=== PATIENT | female | born 1995 | race Caucasian/White ===

== ENCOUNTER 2017-09-28 01:36 | Emergency (ER) | payer OTHER ==
[2017-09-28 01:54] LABS: BILIRUBIN,URINE NEGATIVE (NEG); CLARITY,URINE CLOUDY; COLOR,URINE YELLOW; GLUCOSE,URINE 500 mg/dL (NEG); NITRITE,URINE NEGATIVE (NEG); PH,URINE 5.5; PROTEIN,URINE NEGATIVE (NEG-TRACE); UROBILINOGEN,URINE 0.2 mg/dL (0.2 mg/dL)
[2017-09-28 02:03] LABS: BACTERIA,URINE MANY /HPF (0-FEW); RBC,URINE 0 /HPF (0-2); SQUAMOUS EPITHELIAL CELL,UR MANY /LPF
[2017-09-28 02:21] LABS: ADD MAN DIFF? NO
[2017-09-28 02:24] LABS: BASO % 0 % (0-3); EOS # 0.2 x10^3/uL (0.0-0.7); EOS % 2 % (0-3); HEMATOCRIT 41.9 % (36.0-47.0); HEMOGLOBIN 14.2 g/dL (12.0-15.5); LYMPH # 2.5 x10^3/uL (1.0-4.8); LYMPH % 23 % (24-48); MEAN CORPUSCULAR HEMOGLOBIN 31 pg (25-35); MEAN CORPUSCULAR HGB CONC 34 g/dL (31-37); MEAN CORPUSCULAR VOLUME 92 fL (79-100); MONO # 0.8 x10^3/uL (0.0-1.1); MONO % 7 % (0-9); NEUT # 7.5 x10^3uL (1.8-7.7); NEUT % 68 % (31-73); PLATELET COUNT 246 x10^3/uL (140-400); RED BLOOD COUNT 4.54 x10^6/uL (3.50-5.40); RED CELL DISTRIBUTION WIDTH 12.9 % (11.5-14.5)
[2017-09-28] MEDS ORDERED: NITROFURANTOIN MONOHYD/M-CRYST 100 MG CAPSULE. PO (03:17)
[2017-09-28] MEDS: NITROFURANTOIN MONOHYD/M-CRYST 100 MG CAPSULE. PO (03:21)
[2017-09-29 07:18] LABS: URINE HCG POC HCG POSITIVE (Negative)
== END 2017-09-28 03:22 | disposition home or self-care (01) ==
LOC: ER 01:36
DX: O20.0 Threatened abortion (principal); O23.41 Unspecified infection of urinary tract in pregnancy, first trimester; F12.10 Cannabis abuse, uncomplicated; Z3A.01 Less than 8 weeks gestation of pregnancy; Z90.49 Acquired absence of other specified parts of digestive tract
CPT/HCPCS: 36415; 81001; 81025; 84702; 85025; 86900; 86901; 87086; 99284

== ENCOUNTER 2017-10-05 09:30 | Emergency (ER) | payer OTHER ==
[2017-10-05 10:18] LABS: URINE HCG POC HCG POSITIVE (Negative)
[2017-10-05 10:28] LABS: BILIRUBIN,URINE NEGATIVE (NEG); CLARITY,URINE CLEAR; COLOR,URINE YELLOW; GLUCOSE,URINE NEGATIVE (NEG); NITRITE,URINE NEGATIVE (NEG); PROTEIN,URINE NEGATIVE (NEG-TRACE); UROBILINOGEN,URINE 0.2 mg/dL (0.2 mg/dL)
[2017-10-05 10:43] LABS: BACTERIA,URINE 0 /HPF (0-FEW); RBC,URINE 0 /HPF (0-2); SQUAMOUS EPITHELIAL CELL,UR MOD /LPF; WBC,URINE RARE /HPF (0-4)
[2017-10-05 11:18] LABS: ADD MAN DIFF? NO
[2017-10-05 11:22] LABS: BASO % 0 % (0-3); EOS # 0.2 x10^3/uL (0.0-0.7); EOS % 3 % (0-3); HEMATOCRIT 39.9 % (36.0-47.0); HEMOGLOBIN 13.7 g/dL (12.0-15.5); LYMPH # 1.5 x10^3/uL (1.0-4.8); LYMPH % 22 % (24-48); MEAN CORPUSCULAR HEMOGLOBIN 31 pg (25-35); MEAN CORPUSCULAR HGB CONC 34 g/dL (31-37); MEAN CORPUSCULAR VOLUME 92 fL (79-100); MONO # 0.5 x10^3/uL (0.0-1.1); MONO % 7 % (0-9); NEUT # 4.7 x10^3uL (1.8-7.7); NEUT % 68 % (31-73); PLATELET COUNT 226 x10^3/uL (140-400); RED BLOOD COUNT 4.36 x10^6/uL (3.50-5.40); RED CELL DISTRIBUTION WIDTH 12.7 % (11.5-14.5)
[2017-10-05 11:27] LABS: ANION GAP 6 (6-14); BLOOD UREA NITROGEN 7 mg/dL (7-20); CALCIUM 8.7 mg/dL (8.5-10.1); CARBON DIOXIDE 27 mmol/L (21-32); CHLORIDE 104 mmol/L (98-107); CREATININE 0.6 mg/dL (0.6-1.0); GFR 123.9; GLUCOSE 87 mg/dL (70-99); SODIUM 137 mmol/L (136-145)
[2017-10-05 11:33] LABS: ALBUMIN 3.5 g/dL (3.4-5.0); ALK PHOS 48 U/L (46-116); ALT (SGPT) 19 U/L (14-59); AST (SGOT) 13 U/L (15-37); DIRECT BILIRUBIN < 0.1 mg/dL (0.0-0.2); TOTAL BILIRUBIN 0.3 mg/dL (0.2-1.0); TOTAL PROTEIN 7.3 g/dL (6.4-8.2)
[2017-10-05 11:35] LABS: PARTIAL THROMBOPLASTIN TIME 29 SEC (24-38); PROTHROMBIN TIME PATIENT 13.1 SEC (11.7-14.0)
[2017-10-05 12:12] LABS: FECAL OB PT POSITIVE (NEG); NEG OBC FOB NEG; POS OBC FOB POS
[2017-10-05] MEDS: ONDANSETRON PF 4 MG/2 ML VIAL. IV (12:12)
[2017-10-05] MEDS ORDERED: FAMOTIDINE 20 MG TABLET. (13:22)
[2017-10-05] MEDS: FAMOTIDINE 20 MG TABLET. PO (13:27)
== END 2017-10-05 13:23 | disposition home or self-care (01) ==
LOC: ER 09:30
DX: O99.611 Diseases of the digestive system complicating pregnancy, first trimester (principal); K29.70 Gastritis, unspecified, without bleeding; F12.10 Cannabis abuse, uncomplicated; Z90.49 Acquired absence of other specified parts of digestive tract; Z3A.10 10 weeks gestation of pregnancy
CPT/HCPCS: 36415; 80048; 80076; 81001; 81025; 82274; 85025; 85610; 85730; 87086; 96374; 99284-25; J2405

== ENCOUNTER 2017-12-01 00:32 | Emergency (ER) | payer OTHER ==
[2017-12-01 01:24] LABS: BILIRUBIN,URINE NEGATIVE (NEG); CLARITY,URINE CLEAR; COLOR,URINE YELLOW; GLUCOSE,URINE NEGATIVE (NEG); NITRITE,URINE NEGATIVE (NEG); PH,URINE 6.5; PROTEIN,URINE NEGATIVE (NEG-TRACE)
[2017-12-01 01:28] LABS: ADD MAN DIFF? NO
[2017-12-01 01:29] LABS: BASO % 0 % (0-3); EOS # 0.1 x10^3/uL (0.0-0.7); EOS % 2 % (0-3); HEMATOCRIT 34.8 % (36.0-47.0); HEMOGLOBIN 12.4 g/dL (12.0-15.5); LYMPH % 24 % (24-48); MEAN CORPUSCULAR HEMOGLOBIN 33 pg (25-35); MEAN CORPUSCULAR HGB CONC 36 g/dL (31-37); MEAN CORPUSCULAR VOLUME 92 fL (79-100); MONO # 0.7 x10^3/uL (0.0-1.1); MONO % 8 % (0-9); NEUT # 5.5 x10^3uL (1.8-7.7); NEUT % 66 % (31-73); PLATELET COUNT 195 x10^3/uL (140-400); RED BLOOD COUNT 3.79 x10^6/uL (3.50-5.40); RED CELL DISTRIBUTION WIDTH 12.4 % (11.5-14.5); WHITE BLOOD COUNT 8.3 x10^3/uL (4.0-11.0)
[2017-12-01 01:33] LABS: BACTERIA,URINE 0 /HPF (0-FEW); RBC,URINE 0 /HPF (0-2); SQUAMOUS EPITHELIAL CELL,UR FEW /LPF; WBC,URINE 0 /HPF (0-4)
[2017-12-01 01:43] LABS: ANION GAP 8 (6-14); BLOOD UREA NITROGEN 8 mg/dL (7-20); BUN/CREATININE RATIO 16 (6-20); CALCIUM 8.2 mg/dL (8.5-10.1); CARBON DIOXIDE 25 mmol/L (21-32); CHLORIDE 106 mmol/L (98-107); CREATININE 0.5 mg/dL (0.6-1.0); GFR 152.9; GLUCOSE 81 mg/dL (70-99); POTASSIUM 3.5 mmol/L (3.5-5.1); SODIUM 139 mmol/L (136-145)
[2017-12-01 01:50] LABS: ALBUMIN 2.9 g/dL (3.4-5.0); ALBUMIN/GLOBULIN RATIO 0.9 (1.0-1.7); ALK PHOS 45 U/L (46-116); ALT (SGPT) 15 U/L (14-59); AST (SGOT) 14 U/L (15-37); TOTAL BILIRUBIN 0.2 mg/dL (0.2-1.0); TOTAL PROTEIN 6.2 g/dL (6.4-8.2)
[2017-12-01] MEDS: ONDANSETRON PF 4 MG/2 ML VIAL. IV (02:11)
[2017-12-01] MEDS: IV NORMAL SALINE 1000ML BAG 1,000 ML IV (02:12)
== END 2017-12-01 02:40 | disposition home or self-care (01) ==
LOC: ER 00:32
DX: O21.9 Vomiting of pregnancy, unspecified (principal); O99.322 Drug use complicating pregnancy, second trimester; F12.10 Cannabis abuse, uncomplicated; R10.30 Lower abdominal pain, unspecified; Z3A.18 18 weeks gestation of pregnancy
CPT/HCPCS: 36415; 80053; 81001; 85025; 96374; 99284; J2405; J7030

== ENCOUNTER → 2017-12-15 | Outpatient (CLI) | payer OTHER | END | disposition home or self-care (01) | LOC: KCIC US 14:36 | DX: O26.842 Uterine size-date discrepancy, second trimester (principal); Z3A.20 20 weeks gestation of pregnancy | CPT/HCPCS: 76805 ==

== ENCOUNTER 2018-01-01 16:10 | Observation (INO) | payer OTHER ==
[2018-01-01] MEDS ORDERED: IV RINGERS,LACTATED 1000ML 1,000 ML IV (16:46)
[2018-01-01 17:05] LABS: AMNIO PT NEGATIVE; NEG OBC AMNIO NEG; POS OBC AMNIO POS
== END 2018-01-01 17:35 | disposition home or self-care (01) ==
LOC: 3 SO LND 16:10
DX: O42.912 Preterm premature rupture of membranes, unspecified as to length of time between rupture and onset of labor, second trimester (principal); O26.892 Other specified pregnancy related conditions, second trimester; R10.2 Pelvic and perineal pain; Z3A.22 22 weeks gestation of pregnancy
CPT/HCPCS: 36415; 84112; G0378; G0379

== ENCOUNTER → 2018-02-28 | Outpatient (CLI) | payer OTHER ==
[2017-12-01 01:25] VITALS: BP 117/69
[~2018-02-28] MED LIST: NITR100C62 PO; ONDA4TAB10 SL; ONDA4TAB12 PO
--- NOTE | 2018-02-28 12:15 | KCIC ---
EXAM: Obstetrics sonogram. HISTORY: Size and dates discrepancy. TECHNIQUE: Sonographic imaging of a gravid uterus was performed. COMPARISON: 12/15/2017. FINDINGS: There is a single intrauterine fetus in cephalic presentation with a heart rate of 143 bpm. The cervix is closed and measures 5.2 cm in length. The amniotic fluid index is normal at 11.7 cm. There is an anterior placenta without evidence of placenta previa. The biparietal diameter is 7.76 cm, corresponding with 31 weeks and 1 day. The head circumference is 28.33 cm, corresponding with 31 weeks and 1 day. The abdominal circumference is 27.25 cm, corresponding with 31 weeks and 2 days. The femoral length is 5.9 cm, corresponding with 30 weeks and 5 days. The estimated gestational age patient combined ultrasound measurements is 31 weeks and 1 day. The estimated weight is 1703 g. The estimated due date is 05/01/2018. There is normal head circumference to abdominal circumference ratio is 1.04. The estimated weight is at the 49th percentile for gestational age based on LMP. The spine was not well assessed on the prior anatomy survey due to presentation. No spinal abnormality is seen on axial images obtained during this exam. IMPRESSION: Single intrauterine fetus with a heart rate of 143 bpm and an estimated gestational age based on ultrasound measurements of 31 weeks and 1 day. The estimated gestational age based on LMP is 30 weeks and 6 days. Electronically signed by: Elsy Eli MD (02/28/2018 12:12 PM) [id number]
== END | disposition home or self-care (01) ==
LOC: KCIC US 10:02
PROVIDERS: ATTEND Obstetrics & Gynecology
DX: O26.843 Uterine size-date discrepancy, third trimester (principal); Z3A.31 31 weeks gestation of pregnancy
CPT/HCPCS: 76805

== ENCOUNTER 2018-04-08 19:29 | Observation (INO) | payer OTHER ==
[2017-12-01 01:25] VITALS: BP 117/69
[2018-04-08] MEDS ORDERED: IV RINGERS,LACTATED 1000ML 1,000 ML IV PRN (19:45)
[2018-04-08 20:02] LABS: BILIRUBIN,URINE NEGATIVE (NEG); CLARITY,URINE CLOUDY; COLOR,URINE YELLOW; NITRITE,URINE NEGATIVE (NEG); PH,URINE 6.5; PROTEIN,URINE NEGATIVE (NEG-TRACE)
[2018-04-08 20:04] LABS: BACTERIA,URINE MODERATE /HPF (0-FEW); RBC,URINE 0 /HPF (0-2); SQUAMOUS EPITHELIAL CELL,UR MOD /LPF
[2018-04-08 20:09] LABS: BARBITURATES NEG (NEG); BENZODIAZEPINES NEG (NEG); CANNABINOIDS NEG (NEG); COCAINE NEG (NEG); METHADONE NEG (NEG); OPIATES NEG (NEG); PHENCYCLIDINE NEG (NEG)
[2018-04-08 20:11] LABS: AMPHETAMINE/METHAMPHETAMINE NEG (NEG)
[2018-04-08 20:52] LABS: BASO % 0 % (0-3); EOS # 0.1 x10^3/uL (0.0-0.7); EOS % 1 % (0-3); HEMATOCRIT 31.2 % (36.0-47.0); LYMPH # 2.2 x10^3/uL (1.0-4.8); LYMPH % 23 % (24-48); MEAN CORPUSCULAR HEMOGLOBIN 30 pg (25-35); MEAN CORPUSCULAR HGB CONC 35 g/dL (31-37); MEAN CORPUSCULAR VOLUME 86 fL (79-100); MONO # 0.9 x10^3/uL (0.0-1.1); MONO % 9 % (0-9); NEUT # 6.4 x10^3uL (1.8-7.7); NEUT % 67 % (31-73); PLATELET COUNT 197 x10^3/uL (140-400); RED BLOOD COUNT 3.64 x10^6/uL (3.50-5.40); RED CELL DISTRIBUTION WIDTH 12.3 % (11.5-14.5); WHITE BLOOD COUNT 9.5 x10^3/uL (4.0-11.0)
--- NOTE | 2018-04-08 20:53 | RAD ---
Obstetrical ultrasound HISTORY: Patient fell today at 4:00 PM. Request evaluation of placenta and amniotic fluid index. FINDINGS: Placenta is anterior. Cervical length measures 3.3 cm. heart tones are documented with a heart rate of 157 bpm. Amniotic fluid index is 13.9. Biparietal diameter, abdominal circumference, femur length and head circumference are measured. Estimated sonographic age is 36 weeks 0 days with an estimated due date of 05/06/2018. Estimated weight is 6 lbs. 6 oz. +/- 15 ounces. IMPRESSION: No sonographic abnormalities. Amniotic fluid volume appears within normal limits. Electronically signed by: Gurwinder Dumont MD (04/08/2018 8:50 PM) [facility]
== END 2018-04-08 23:20 | disposition home or self-care (01) ==
LOC: 3 SO LND 19:29
PROVIDERS: ADMIT Obstetrics & Gynecology; ATTEND Obstetrics & Gynecology
DX: O26.893 Other specified pregnancy related conditions, third trimester (principal); O99.89 Other specified diseases and conditions complicating pregnancy, childbirth and the puerperium; R10.9 Unspecified abdominal pain; M54.9 Dorsalgia, unspecified; Z3A.36 36 weeks gestation of pregnancy; Z79.899 Other long term (current) drug therapy
CPT/HCPCS: 36415; 76815; 80307; 81001; 85025; 87086; G0378; G0379; G0479

== ENCOUNTER 2018-04-14 14:04 | Observation (INO) | payer OTHER ==
[2017-12-01 01:25] VITALS: BP 117/69
--- NOTE | 2018-04-14 16:29 | RAD ---
Obstetrical ultrasound-limited, 04/14/2018: HISTORY: Check RICK, leaking fluid, recent fall There is a single intrauterine fetus in a cephalic orientation. The heart rate is 152 bpm. The cervical length is 3.5 cm. The placenta lies anteriorly with no evidence of a placenta previa. No periplacental hemorrhage is seen. The amniotic fluid volume is within normal limits with the RICK measured at 18.7. There is a small amount of echogenic debris within the amniotic fluid. A full survey was not performed at this time. IMPRESSION: 1. Single living intrauterine fetus. 2. Normal amniotic fluid volume with the RICK measured at 18.7. Electronically signed by: Josias Newman MD (04/14/2018 4:25 PM) [facility]
== END 2018-04-14 16:15 | disposition home or self-care (01) ==
LOC: 3 SO LND 14:04
PROVIDERS: ADMIT Obstetrics & Gynecology; ATTEND Obstetrics & Gynecology
DX: O42.913 Preterm premature rupture of membranes, unspecified as to length of time between rupture and onset of labor, third trimester (principal); O26.893 Other specified pregnancy related conditions, third trimester; R10.9 Unspecified abdominal pain; Z3A.34 34 weeks gestation of pregnancy
CPT/HCPCS: 76815; G0378; G0379

== ENCOUNTER 2018-09-03 15:08 | Emergency (ER) | payer SELFPAY ==
[~2018-09-03] VITALS: Ht 165.1 cm; Wt 71.2 kg
[~2018-09-03 15:08] MED LIST changes: +IBUP-1027 PO
[2018-09-03 16:30] LABS: BILIRUBIN,URINE NEGATIVE (NEG); CLARITY,URINE CLEAR; COLOR,URINE YELLOW; NITRITE,URINE NEGATIVE (NEG); PH,URINE 6.5; PROTEIN,URINE NEGATIVE (NEG-TRACE)
[2018-09-03] MEDS ORDERED: IV NORMAL SALINE 1000ML BAG 1,000 ML IV ONE (16:30)
[2018-09-03] MEDS ORDERED: ONDANSETRON PF 4 MG/2 ML VIAL. IV ONE (16:30)
[2018-09-03] MEDS ORDERED: KETOROLAC 15 MG/ML VIAL. IV ONE (16:30)
[2018-09-03] MEDS ORDERED: diphenhydrAMINE 50 MG/ML VIAL IVP ONE (16:30)
--- NOTE | 2018-09-03 16:52 | RAD ---
CT HEAD WO CONTRAST Indication: headache x2 days, photophobia, vomiting, no migraine Hx Exposure: One or more of the following individualized dose reduction techniques were utilized for this examination: 1. Automated exposure control 2. Adjustment of the mA and/or kV according to patient size 3. Use of iterative reconstruction technique. Comparison: None are available. Contrast: None Findings: Posterior fossa unremarkable. No evidence of acute intracranial hemorrhage, mass effect, midline shift or abnormal extra-axial fluid collection. Ventricles are symmetric. Melo-white matter distinction is intact. Orbits unremarkable. Partially visualized sinuses are clear. No acute skull abnormality. IMPRESSION: No evidence of acute intracranial hemorrhage or mass effect. MRI could be of benefit for further evaluation. Electronically signed by: Gurwinder Dumont MD (09/03/2018 4:49 PM) [facility]
[2018-09-03 16:55] LABS: BASO % 0 % (0-3); EOS % 0 % (0-3); HEMATOCRIT 38.5 % (36.0-47.0); LYMPH # 1.3 x10^3/uL (1.0-4.8); LYMPH % 21 % (24-48); MEAN CORPUSCULAR HEMOGLOBIN 29 pg (25-35); MEAN CORPUSCULAR HGB CONC 34 g/dL (31-37); MEAN CORPUSCULAR VOLUME 85 fL (79-100); MONO # 0.5 x10^3/uL (0.0-1.1); MONO % 8 % (0-9); NEUT # 4.4 x10^3uL (1.8-7.7); NEUT % 71 % (31-73); PLATELET COUNT 263 x10^3/uL (140-400); RED BLOOD COUNT 4.53 x10^6/uL (3.50-5.40); RED CELL DISTRIBUTION WIDTH 12.8 % (11.5-14.5); WHITE BLOOD COUNT 6.3 x10^3/uL (4.0-11.0)
--- NOTE | 2018-09-03 16:55 | PHYS DOC ---
Past Medical History Past Medical History: No Pertinent History Additional Past Medical Histor: Gonorrhea POS 12/2015 Past Surgical History: Appendectomy Alcohol Use: Rarely Drug Use: Marijuana Adult General Chief Complaint Chief Complaint: HEADACHE HPI HPI Patient is a 23 year old female who presents to the ER with complaints of a headache with nausea, vomiting, and photophobia for the last 2 days. She denies any recent fever, head injury, or illness. She denies any history of migraines. Pt reports feeling dizzy with position changes and states that anytime she tries to eat or drink anything she vomits. Pt denies any neck pain or blurred vision. She reports that her pain is a 10/10 on the pain scale, there are no alleviating factors. Pt states she has tried taking ibuprofen and tylenol at home. Review of Systems Review of Systems Constitutional: Denies fever or chills [] Eyes: See HPI HENT: Denies nasal congestion or sore throat [] Respiratory: Denies cough or shortness of breath [] Cardiovascular: No additional information not addressed in HPI [] GI: Denies abdominal pain, or diarrhea; see HPI : Denies dysuria or hematuria [] Musculoskeletal: Denies back pain or joint pain [] Integument: Denies rash or skin lesions [] Neurologic: Denies focal weakness or sensory changes; reports frontal headache that is constant pressure x2 days [] complete systems were reviewed and found to be within normal limits, except as documented in this note. Current Medications Current Medications Current Medications Medications (Trade) Dose Ordered Sig/Alvin Start Time Stop Time Status Last Admin Dose Admin Dexamethasone Sodium Phosphate (Decadron) 10 mg 1X ONCE 09/03/18 17:30 09/03/18 17:32 DC Diphenhydramine HCl (Benadryl) 25 mg 1X ONCE 09/03/18 16:30 09/03/18 16:31 DC 09/03/18 16:36 25 MG Ketorolac Tromethamine (Toradol 15mg Vial) 15 mg 1X ONCE 09/03/18 16:30 09/03/18 16:31 DC 09/03/18 16:37 15 MG Ondansetron HCl (Zofran) 4 mg 1X ONCE 09/03/18 16:30 09/03/18 16:31 DC 09/03/18 16:35 4 MG Sodium Chloride 1,000 ml @ 1,000 mls/hr 1X ONCE 09/03/18 16:30 09/03/18 17:29 DC 09/03/18 16:38 1,000 MLS/HR Allergies Allergies Allergies Coded Allergies Type Severity Reaction Last Updated Verified No Known Drug Allergies 12/11/15 No Physical Exam Physical Exam Constitutional: Well developed, well nourished, no acute distress, non-toxic appearance. [] HENT: Normocephalic, atraumatic, bilateral external ears normal, oropharynx moist, no oral exudates, nose normal. [] Eyes: PERRLA, EOMI, conjunctiva normal, no discharge, no nystagmus. [] Neck: Normal range of motion, no stridor. [] Cardiovascular:Heart rate regular rhythm, no murmur [] Lungs & Thorax: Bilateral breath sounds clear to auscultation [] Skin: Warm, dry, no erythema, no rash. [] Extremities: No cyanosis, no clubbing, ROM intact Neurologic: Alert and oriented X 3, normal motor function, normal sensory function, no focal deficits noted. [] Psychologic: Affect normal, judgement normal, mood normal. [] Current Patient Data Vital Signs Vital Signs Date Time Temp Pulse Resp B/P (MAP) Pulse Ox O2 Delivery O2 Flow Rate FiO2 09/03/18 16:57 86 20 99 09/03/18 15:54 98.4 118/62 (80) Room Air 98.4 Lab Values Laboratory Tests Test 09/03/18 15:55 09/03/18 16:02 09/03/18 16:39 Urine Collection Type Void Urine Color Yellow Urine Clarity Clear Urine pH 6.5 Urine Specific [place] >=1.030 Urine Protein Negative mg/dL (NEG-TRACE) Urine Glucose (UA) Negative mg/dL (NEG) Urine Ketones (Stick) 40 mg/dL (NEG) Urine Blood Negative (NEG) Urine Nitrite Negative (NEG) Urine Bilirubin Negative (NEG) Urine Urobilinogen Dipstick 1.0 mg/dL (0.2 mg/dL) Urine Leukocyte Esterase Negative (NEG) Urine RBC 0 /HPF (0-2) Urine WBC Occ /HPF (0-4) Urine Squamous Epithelial Cells Many /LPF Urine Bacteria Moderate /HPF (0-FEW) Urine Mucus Marked /LPF POC Urine HCG, Qualitative Hcg negative (Negative) White Blood Count 6.3 x10^3/uL (4.0-11.0) Red Blood Count 4.53 x10^6/uL (3.50-5.40) Hemoglobin 13.0 g/dL (12.0-15.5) Hematocrit 38.5 % (36.0-47.0) Mean Corpuscular Volume 85 fL (79-100) Mean Corpuscular Hemoglobin 29 pg (25-35) Mean Corpuscular Hemoglobin Concent 34 g/dL (31-37) Red Cell Distribution Width 12.8 % (11.5-14.5) Platelet Count 263 x10^3/uL (140-400) Neutrophils (%) (Auto) 71 % (31-73) Lymphocytes (%) (Auto) 21 % (24-48) L Monocytes (%) (Auto) 8 % (0-9) Eosinophils (%) (Auto) 0 % (0-3) Basophils (%) (Auto) 0 % (0-3) Neutrophils # (Auto) 4.4 x10^3uL (1.8-7.7) Lymphocytes # (Auto) 1.3 x10^3/uL (1.0-4.8) Monocytes # (Auto) 0.5 x10^3/uL (0.0-1.1) Eosinophils # (Auto) 0.0 x10^3/uL (0.0-0.7) Basophils # (Auto) 0.0 x10^3/uL (0.0-0.2) Sodium Level 137 mmol/L (136-145) Potassium Level 3.7 mmol/L (3.5-5.1) Chloride Level 101 mmol/L (98-107) Carbon Dioxide Level 27 mmol/L (21-32) Anion Gap 9 (6-14) Blood Urea Nitrogen 9 mg/dL (7-20) Creatinine 0.7 mg/dL (0.6-1.0) Estimated GFR (Cockcroft-Gault) 102.8 BUN/Creatinine Ratio 13 (6-20) Glucose Level 93 mg/dL (70-99) Calcium Level 8.8 mg/dL (8.5-10.1) Total Bilirubin 0.6 mg/dL (0.2-1.0) Aspartate Amino Transferase (AST) 17 U/L (15-37) Alanine Aminotransferase (ALT) 17 U/L (14-59) Alkaline Phosphatase 54 U/L (46-116) Total Protein 7.6 g/dL (6.4-8.2) Albumin 3.9 g/dL (3.4-5.0) Albumin/Globulin Ratio 1.1 (1.0-1.7) Laboratory Tests 09/03/18 16:39 Laboratory Tests 09/03/18 16:39 EKG EKG [] Radiology/Procedures Radiology/Procedures PROCEDURE: CT HEAD WO CONTRAST CT HEAD WO CONTRAST Indication: headache x2 days, photophobia, vomiting, no migraine Hx Exposure: One or more of the following individualized dose reduction techniques were utilized for this examination: 1. Automated exposure control 2. Adjustment of the mA and/or kV according to patient size 3. Use of iterative reconstruction technique. Comparison: None are available. Contrast: None Findings: Posterior fossa unremarkable. No evidence of acute intracranial hemorrhage, mass effect, midline shift or abnormal extra-axial fluid collection. Ventricles are symmetric. Melo-white matter distinction is intact. Orbits unremarkable. Partially visualized sinuses are clear. No acute skull abnormality. IMPRESSION: No evidence of acute intracranial hemorrhage or mass effect. [] Course & Med Decision Making Course & Med Decision Making Pertinent Labs and Imaging studies reviewed. (See chart for details) [] Dragon Disclaimer Dragon Disclaimer This electronic medical record was generated, in whole or in part, using a voice recognition dictation system. Departure Departure Impression: Primary Impression: Headache Additional Impression: Nausea & vomiting Disposition: 01 HOME, SELF-CARE Condition: STABLE Referrals: NO PCP (PCP) Patient Instructions: General Headache Without Cause, [id number] Additional Instructions: Home to rest. Tylenol or ibuprofen as needed. Follow up with PCP if symptoms persist, return to the ER if symptoms worsen. Scripts Butalb/Acetaminophen/Caffeine ([id number] 50-325-40) 1 Each Tablet 1 EACH PO Q4-6HRS PRN for PAIN MDD 6 tablets for 3 Days, #18 TAB 0 Refills Prov: GRACIELA GOMEZ BACK FACER 09/03/18 Problem Qualifiers Primary Impression: Headache Headache type: unspecified Headache chronicity pattern: acute headache Intractability: not intractable Qualified Codes: R51 - Headache Additional Impression: Nausea & vomiting Vomiting type: unspecified Vomiting Intractability: non-intractable Qualified Codes: R11.2 - Nausea with vomiting, unspecified GRACIELA GOMEZ APRN Sep 03, 2018 16:55
[2018-09-03 16:57] VITALS: BP 102/67
[2018-09-03 17:00] LABS: BACTERIA,URINE MODERATE /HPF (0-FEW); RBC,URINE 0 /HPF (0-2); SQUAMOUS EPITHELIAL CELL,UR MANY /LPF; WBC,URINE OCC /HPF (0-4)
[2018-09-03 17:05] LABS: CALCIUM 8.8 mg/dL (8.5-10.1); CREATININE 0.7 mg/dL (0.6-1.0); GFR 102.8; POTASSIUM 3.7 mmol/L (3.5-5.1)
[2018-09-03 17:11] LABS: ALBUMIN 3.9 g/dL (3.4-5.0); ALBUMIN/GLOBULIN RATIO 1.1 (1.0-1.7); TOTAL BILIRUBIN 0.6 mg/dL (0.2-1.0); TOTAL PROTEIN 7.6 g/dL (6.4-8.2)
[2018-09-03] MEDS ORDERED: DEXAMETHASONE SOD PHOS 20 MG/5 ML VIAL. IV ONE (17:30)
[2018-09-03] MEDS ORDERED: BUTA1TAB23 PO (17:43)
== END 2018-09-03 18:20 | disposition home or self-care (01) ==
LOC: ER 15:08
DX: R11.2 Nausea with vomiting, unspecified (principal); R51 Headache; R42 Dizziness and giddiness; Z90.89 Acquired absence of other organs
CPT/HCPCS: 36415; 70450; 80053; 81001; 81025; 85025; 87086; 96361; 96374; 96375; 99284; J1100; J1200; J1885; J2405; J7030

== ENCOUNTER 2019-02-08 10:43 | Emergency (ER) | payer OTHER ==
[~2019-02-08] VITALS: Ht 160 cm; Wt 54.4 kg
[~2019-02-08 10:43] MED LIST changes: +BUTA1TAB23 PO
[2019-02-08 11:08] VITALS: BP 105/66
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
== END 2019-02-08 11:36 | disposition home or self-care (01) ==
LOC: ER 10:43
DX: S90.32XA Contusion of left foot, initial encounter (principal); Z90.89 Acquired absence of other organs; V09.9XXA Pedestrian injured in unspecified transport accident, initial encounter; Y93.89 Activity, other specified; Y92.89 Other specified places as the place of occurrence of the external cause; Y99.8 Other external cause status
CPT/HCPCS: 99281

== ENCOUNTER 2019-09-18 18:24 | Observation (INO) | payer OTHER ==
[~2019-09-18] VITALS: Ht 160 cm; Wt 73.0 kg
[2019-09-18] MEDS ORDERED: IV RINGERS,LACTATED 1000ML 1,000 ML IV SCH (18:31)
[2019-09-18 19:03] LABS: BILIRUBIN,URINE NEGATIVE (NEG); CLARITY,URINE CLEAR; COLOR,URINE YELLOW; NITRITE,URINE NEGATIVE (NEG); PH,URINE 5.5 (<5.0-8.0); PROTEIN,URINE NEGATIVE (NEG-TRACE); UROBILINOGEN,URINE 0.2 mg/dL (0.2 mg/dL)
[2019-09-18 19:15] LABS: BACTERIA,URINE FEW /HPF (0-FEW); RBC,URINE 0 /HPF (0-2); SQUAMOUS EPITHELIAL CELL,UR FEW /LPF; WBC,URINE RARE /HPF (0-4)
[2019-09-18 19:27] LABS: BARBITURATES NEG (NEG); BENZODIAZEPINES NEG (NEG); CANNABINOIDS NEG (NEG); COCAINE NEG (NEG); METHADONE NEG (NEG); OPIATES NEG (NEG); PHENCYCLIDINE NEG (NEG)
[2019-09-18 19:34] LABS: AMPHETAMINE/METHAMPHETAMINE NEG (NEG)
== END 2019-09-18 20:07 | disposition home or self-care (01) ==
LOC: 3 SO LND 18:24
PROVIDERS: ADMIT Obstetrics & Gynecology; ATTEND Obstetrics & Gynecology
DX: O62.9 Abnormality of forces of labor, unspecified (principal); Z3A.38 38 weeks gestation of pregnancy
CPT/HCPCS: 80307; 81001; G0378; G0379

== ENCOUNTER 2019-09-22 02:15 | Observation (INO) | payer OTHER ==
[2019-09-22 13:50] LABS: BACTERIA,URINE MODERATE /HPF (0-FEW); BILIRUBIN,URINE SMALL (NEG); CLARITY,URINE CLEAR; COLOR,URINE YELLOW; NITRITE,URINE NEGATIVE (NEG); PH,URINE 6.5 (<5.0-8.0); PROTEIN,URINE NEGATIVE (NEG-TRACE); RBC,URINE 0 /HPF (0-2); SQUAMOUS EPITHELIAL CELL,UR MOD /LPF; UROBILINOGEN,URINE 0.2 mg/dL (0.2 mg/dL)
[2019-09-22 14:00] LABS: AMPHETAMINE/METHAMPHETAMINE NEG (NEG); BARBITURATES NEG (NEG); BENZODIAZEPINES NEG (NEG); CANNABINOIDS NEG (NEG); COCAINE NEG (NEG); METHADONE NEG (NEG); OPIATES NEG (NEG); PHENCYCLIDINE NEG (NEG)
[2019-09-27] MEDS ORDERED: IBUP-1027 PO (13:47)
== END 2019-09-22 04:40 | disposition home or self-care (01) ==
LOC: 3 SO LND 02:15
PROVIDERS: ADMIT Obstetrics & Gynecology; ATTEND Obstetrics & Gynecology
DX: O62.9 Abnormality of forces of labor, unspecified (principal); Z3A.38 38 weeks gestation of pregnancy
CPT/HCPCS: 80307; 81001; 87086; G0378; G0379

== ENCOUNTER 2020-01-23 20:50 | Emergency (ER) | payer OTHER ==
[~2020-01-23] VITALS: Ht 160 cm; Wt 56.0 kg
[2020-01-23 21:10] VITALS: BP 125/71
[2020-01-23 21:12] LABS: CLARITY,URINE CLEAR; COLOR,URINE ORANGE
[2020-01-23 21:16] LABS: AMORPHOUS SEDIMENT,UR PRESENT /HPF; BACTERIA,URINE FEW /HPF (0-FEW); WBC,URINE 20-40 /HPF (0-4)
[2020-01-23 21:17] LABS: SQUAMOUS EPITHELIAL CELL,UR FEW /LPF
--- NOTE | 2020-01-23 21:24 | PHYS DOC ---
Past Medical History Past Medical History: No Pertinent History Additional Past Medical Histor: Gonorrhea POS 12/2015 Past Surgical History: Appendectomy Smoking Status: Never Smoker Alcohol Use: Rarely Drug Use: Marijuana General Adult EDM: Chief Complaint: FLANK PAIN HPI: HPI: Patient is a 24 year old male who presents to the emergency department with complaints of burning with urination for the last 3 days and low back pain bilaterally that began today. She denies any nausea, vomiting, diarrhea, abdominal pain, hematuria, difficulty urinating, irregular vaginal discharge, vaginal odor, or irregular vaginal bleeding. Patient denies any fever, cough, or shortness of breath. She currently rates the pain in her back and 9 out of 10 on the pain scale, she denies any alleviating factors. Patient states she has tried taking Azo at home with no relief in her symptoms. She denies any aggravating factors. Review of Systems: Review of Systems: Complete ROS is negative unless otherwise stated in the HPI. Heart Score: Risk Factors: Risk Factors: DM, Current or recent (<one month) smoker, HTN, HLP, family history of CAD, obesity. Risk Scores: Score 0 - 3: 2.5% MACE over next 6 weeks - Discharge Home Score 4 - 6: 20.3% MACE over next 6 weeks - Admit for Clinical Observation Score 7 - 10: 72.7% MACE over next 6 weeks - Early Invasive Strategies Allergies: Allergies: Allergies Coded Allergies Type Severity Reaction Last Updated Verified No Known Drug Allergies 12/11/15 No Physical Exam: PE: Constitutional: Well developed, well nourished, no acute distress, non-toxic appearance. [] HENT: Normocephalic, atraumatic, bilateral external ears normal, nose normal. [] Eyes: PERRLA, EOMI, conjunctiva normal, no discharge. [] Neck: Normal range of motion, no stridor. [] Cardiovascular:Heart rate regular rhythm Lungs & Thorax: Respirations even and unlabored, no retractions, no respiratory distress Abdomen: soft, no tenderness, no masses, no pulsatile masses. [] Skin: Warm, dry, no erythema, no rash. [] Back: No CVA tenderness. [] Extremities: No cyanosis, ROM intact, no edema. [] Neurologic: Alert and oriented X 3, no focal deficits noted. [] Psychologic: Affect normal, judgement normal, mood normal. [] Current Patient Data: Labs: Laboratory Tests Test 01/23/20 20:52 Urine Collection Type Unknown Urine Color [place] Urine Clarity Clear Urine pH (<5.0-8.0) Urine Specific [place] 1.015 (1.000-1.030) Urine Protein mg/dL (NEG-TRACE) Urine Glucose (UA) mg/dL (NEG) Urine Ketones (Stick) mg/dL (NEG) Urine Blood (NEG) Urine Nitrite (NEG) Urine Bilirubin (NEG) Urine Urobilinogen Dipstick mg/dL (0.2 mg/dL) Urine Leukocyte Esterase (NEG) Urine RBC 3-5 /HPF (0-2) Urine WBC 20-40 /HPF (0-4) Urine Squamous Epithelial Cells Few /LPF Urine Amorphous Sediment Present /HPF Urine Bacteria Few /HPF (0-FEW) Urine Mucus Mod /LPF EKG: EKG: [] Radiology/Procedures: Radiology/Procedures: [] Course & Med Decision Making: Course & Med Decision Making Pertinent Labs and Imaging studies reviewed. (See chart for details) [] Dragon Disclaimer: Dragon Disclaimer: This electronic medical record was generated, in whole or in part, using a voice recognition dictation system. Departure Departure Impression: Primary Impression: UTI (urinary tract infection) Qualified Codes: N30.00 - Acute cystitis without hematuria Disposition: HOME, SELF-CARE Condition: STABLE Referrals: NO PCP (PCP) Patient Instructions: Urinary Tract Infection, Child Additional Instructions: Fill prescription(s) and use as directed. You can take Tylenol or ibuprofen as needed for pain. Avoid bladder irritants such as caffeine, carbonation, and spicy foods. Increase clear fluids. Follow up with your primary care doctor if symptoms persist, return to the ER if symptoms worsen. Scripts Phenazopyridine Hcl (PYRIDIUM) 200 Mg Tablet 1 TAB PO TID for urinary discomfort for 3 Days, #9 TAB 0 Refills Prov: GRACIELA GOMEZ APRN 01/23/20 Cephalexin (CEPHALEXIN) 500 Mg Capsule 1 CAP PO BID for 7 Days, #14 CAP 0 Refills Prov: GRACIELA GOMEZ APRN 01/23/20 Justicifation of Admission Dx: Justifications for Admission: Justification of Admission Dx: N/A GRACIELA GOMEZ APRN Jan 23, 2020 21:24
[2020-01-23] MEDS ORDERED: PHEN-318 PO (21:47)
[2020-01-23] MEDS ORDERED: CEPH500C PO (21:47)
[2020-01-23] MEDS ORDERED: cefTRIAXone IV Push 1 GM VIAL. IVP ONE (21:54)
[2020-01-23 21:57] LABS: U PREG PATIENT NEGATIVE (NEG)
[2020-01-23] MEDS ORDERED: cefTRIAXone IM 250 MG VIAL IM ONE (22:00)
[2020-01-23] MEDS ORDERED: IBUPROFEN 400 MG TABLET. PO ONE (22:00)
[2020-01-23] MEDS ORDERED: cefTRIAXone IM 1 GM VIAL IM ONE (22:15)
== END 2020-01-23 22:26 | disposition home or self-care (01) ==
LOC: ER 20:50
DX: N30.00 Acute cystitis without hematuria (principal); R30.9 Painful micturition, unspecified; M54.5 Low back pain; F12.90 Cannabis use, unspecified, uncomplicated; Z90.89 Acquired absence of other organs
CPT/HCPCS: 81001; 81025; 87086; 96372; 99283; J0696

== ENCOUNTER 2021-02-01 13:55 | Emergency (ER) | payer OTHER ==
[~2021-02-01] VITALS: Ht 160 cm; Wt 60.0 kg
[~2021-02-01 13:55] MED LIST changes: +CEPH500C PO; +PHEN-318 PO
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
[2021-02-01] MEDS ORDERED: LIDO:MAALOX 1:1 20 ML SINGLE DOSE. SWSW ONE (16:00)
[2021-02-01 16:07] VITALS: BP 111/74
== END 2021-02-01 16:11 | disposition home or self-care (01) ==
LOC: ER 13:55
DX: K13.79 Other lesions of oral mucosa (principal); R11.10 Vomiting, unspecified
CPT/HCPCS: 99282